=== PATIENT | male | born 1965 | race Caucasian/White ===

== ENCOUNTER → 2016-05-02 | Outpatient (CLI) | payer BC ==
[~2016-05-02] MED LIST: KEFLEX500 M1 PO
[2016-05-02 15:27] LABS: HEMOGLOBIN 14.6 g/dL (14.1-18.0); LYMPH # 2.6 K/mm3 (0.7-4.5); LYMPH % 38.5 % (10-50)
[2016-05-02 16:03] LABS: BUN 18 mg/dL (7-18); PROSTATE-SPECIFIC ANTIGEN F/U 0.7 ng/mL (0.0-4.0)
[2016-05-02 16:04] LABS: GFR (ESTIMATED) 102 ML/MIN (>60)
== END ==
LOC: LAB 14:26
PROVIDERS: Physician Assistant
DX: Z00.00 Encounter for general adult medical examination without abnormal findings (principal)